=== PATIENT | male | born 1960 | race Caucasian/White ===

== ENCOUNTER 2024-06-23 12:18 | Emergency (ER) | payer MEDICAID ==
[~2024-06-23] VITALS: Ht 167.6 cm; Wt 64.0 kg
[~2024-06-23 12:18] MED LIST: NO HOME MEDS
[2024-06-23 12:25] VITALS: TEMP 99.1
[2024-06-23] MEDS: amox tr/potassium clavulanate 875/125mg TAB PO ONE (12:58)
[2024-06-23] MEDS ORDERED: AMOX-580 PO (13:06)
[2024-06-23] MEDS ORDERED: HYDR-3973 PO (13:06)
[2024-06-23] MEDS: HYDROcodone/acetaminophen 10/325mg tab PO ONE (13:11)
[2024-06-23 13:46] VITALS: BP 124/86; PULSE 63; RESP 16; O2SAT 99
== END 2024-06-23 14:04 | disposition home or self-care (01) ==
LOC: ER 12:18
DX: K04.7 Periapical abscess without sinus (principal); F12.90 Cannabis use, unspecified, uncomplicated; F15.90 Other stimulant use, unspecified, uncomplicated; F14.90 Cocaine use, unspecified, uncomplicated
CPT/HCPCS: 99284

== ENCOUNTER 2024-08-17 11:28 | Emergency (ER) | payer MEDICAID | END 2024-08-17 11:37 | disposition left against medical advice (07) | LOC: ER 11:28 | DX: K04.7 Periapical abscess without sinus (principal); Z53.21 Procedure and treatment not carried out due to patient leaving prior to being seen by health care provider ==